=== PATIENT | male | born 2000 | race Caucasian/White ===

== ENCOUNTER 2023-02-13 09:45 | Emergency (ER) | payer SELFPAY ==
--- OUTSIDE RECORDS SUMMARY | 2023-02-13 09:48 | XMS REPORT | Continuity of Care Document ---
:2000 Author Organization [facility] t Address [address] [place] [id number] Care Team Providers Name Role Phone PCP, PATIENT DOES NOT HAVE A Primary Care Physician Unavaila YOLI Tillman Attending Clinician Unavailable Yoli Crawley DO Attending Clinician Doctor Unassigned, [place] Attending Clinician Unavailable Allison Walker NP Attending Clinician ALLISON WALKER Attending Clinician Unavailable Problems Condition Condition Condition Status Onset Resolution Last Treating Co mments Source Name Details Category Date Date Treatment Clinician Date No known No known Disease Unive rs active active ity of problems problems [facility] Allergies, Adverse Reactions, Alerts Allergy Allergy Status Severity Reaction(s) Onset Inactive Treating Comm ents Source Name Type Date Date Clinician NO KNOWN Drug Active Univers ALLERGIE Class ity of S [facility] Social History Social Habit Start Date Stop Date Quantity Comments Source Exposure to Not sure [facility] SARS-CoV-2 (event) Medica l Branch Sex Assigned At [birth year] [facility] 00:00:00 00:00:00 [facility] Smoking Status Start Date Stop Date Source Unknown if ever smoked [facility] Medications Ordered Filled Start Stop Current Ordering Indication Dosage Frequency Signature Comments Components Source Medication Medication Date Date Medication? Clinician (SIG) Name Name dexamethaso 2021-0 2021- No 10mg 10 mg, Uni vers ne 09-27 Oral, ity of ([place] 17:15: 16:10 [place], [place] 00 :00 dose, On Medic al injection Person [facility] 10 mg 09/27/21 at 1115, STAT No known No Univers medications 09-27 ity of 09:22: [place] 06 [facility] Branch No known 2019- No Univers medications 10-15 ity of 22:05: [place] 56 [facility] oseltamivir 2020- No [id number] 75mg Take 1 Univers 75 mg 10-1518 capsule by ity of capsule 00:00: 04:59 mouth [place] 00 :00 daily for Medical 5 days. Branch Vital Signs Vital Name Observation Time Observation Value Comments Source Systolic blood 2021-09-27 15:14:27 138 mm[Hg] Univer sity of [facility] Diastolic blood 2021-09-27 15:14:27 77 mm[Hg] Unive rsity of [facility] Heart rate 2021-09-27 15:14:27 60 /min Universi ty [facility] Body temperature 2021-09-27 15:14:27 36.5 [facility] [place] [facility] Respiratory rate 2021-09-27 15:14:27 16 /min [facility] Body height 2021-09-27 15:12:00 167.6 cm Universi ty [facility] Body weight 2021-09-27 15:12:00 63.504 kg Universi ty [facility] BMI 2021-09-27 15:12:00 22.60 kg/m2 Universi ty [facility] Oxygen saturation in 2021-09-27 15:12:00 100 /min University of Arterial blood by [facility] Pulse oximetry Branch Systolic blood 2019-10-17 03:15:00 140 mm[Hg] Univer sity of [facility] Diastolic blood 2019-10-17 03:15:00 95 mm[Hg] Unive rsity of [facility] Heart rate 2019-10-17 03:15:00 95 /min Universi ty of [facility] Respiratory rate 2019-10-17 03:15:00 17 /min [facility] Oxygen saturation in 2019-10-17 03:15:00 100 /min University of Arterial blood by [facility] Pulse oximetry Branch Body height 2019-10-16 23:49:00 172.7 cm [facility] Body weight 2019-10-16 23:49:00 65.772 kg [facility] BMI 2019-10-16 23:49:00 22.05 kg/m2 [facility] Body temperature 2019-10-16 23:49:00 37.28 [facility] Procedures Procedure Date / Time Performed Performing Clinician Sourc e NOTICE OF PRIVACY 2021-09-27 15:05:01 Doctor Unassigned, No [facility] [place] CONSENT/REFUSAL FOR 2021-09-27 15:04:36 [facility], [facility] Branch TREATMENT ADC,CLC OR LCC ONLY - 2019-10-17 02:14:00 [facility] [place] [facility] INFLUENZA A & B DIRECT Medical B ranch ANTIGEN ASSIGNMENT OF BENEFITS 2019-10-16 23:43:08 Doctor Unassigned, No [facility] [place] NOTICE OF PRIVACY 2019-10-16 23:39:57 Doctor Unassigned, No [facility] [place] CONSENT/REFUSAL FOR 2019-10-16 23:36:54 Doctor Unass[facility], [facility] [place] TREATMENT Encounters Start End Encounter Admission Attending Care Care Encounter Source Date/Time Date/Time Type Type Clinicians Facility Department ID 2021-09-27 2021-09-27 [facility] [id number] Univers 09:16:00 10:20:00 YOLI murillo [facility] 2021-09-27 2021-09-27 [facility] [id number] Univers 09:16:00 10:20:00 Yoli KAY [id number] ity of [place] [id number] [facility] [id number] [facility] 084 Branch 2021-09-27 2021-09-27 Orders Doctor SHARMA [id number] Univers 00:00:00 00:00:00 Only Unassigned, GUS [id number] ity of [place] [facility] [id number] [facility] 009 Branch 2019-10-16 2019-10-16 Emergency [facility] [id number] Univers 20:06:59 22:20:00 Allison Kay [id number] [place] [id number] [facility] [id number] [place] [id number] Branch 2019-10-16 2019-10-16 Emergency X [facility] ERT [id number] Univers 20:06:59 20:06:59 [facility] Results Test Description Test Time Test Comments Results Result Comments Source ADC,CLC OR LCC ONLY - INFLUENZA A & B DIRECT ANTIGEN 2019-10 02:54:00 Test Item Value Reference Range Interpretation Comme nts Influenza A (test code = 61142-3) Negative Negative Influenza B (test code = 38806-4) Negative Negative Lab Interpretation (test code = 92576-7) Normal [facility]
[2023-02-13] MEDS ORDERED: TDAP (DIPHTH,PERTUSS(ACELL),TET VAC) 0.5 ML VIAL IMVAC ONE (10:04)
[2023-02-13] MEDS ORDERED: THIAMINE 200 MG/2 ML INJ ONE (10:05)
[2023-02-13] MEDS ORDERED: MULTIVITAMINS 10 ML VIAL (INJ) IV ONE (10:06)
[2023-02-13] MEDS ORDERED: FOLIC ACID 5 MG/ML VIAL ONE (10:06)
[2023-02-13] MEDS ORDERED: NA CHLORIDE 0.9% 1,000 ML ONE (10:07)
[2023-02-13] MEDS ORDERED: LIDOCAINE 1% 20 ML MDV ONE (10:55)
--- NOTE | 2023-02-13 11:29 | RAD REPORT ---
EXAM DESCRIPTION: RAD - Hand Right 3 View - 02/13/2023 10:26 am CLINICAL HISTORY: PAIN COMPARISON: No comparisons FINDINGS: No fracture or dislocation seen. No radiopaque foreign body.
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
[2023-02-13 12:27] VITALS: TEMP 97.9; O2SAT 99
[2023-02-13 12:28] VITALS: BP 128/72
== END 2023-02-13 12:09 | disposition home or self-care (01) ==
LOC: ER 09:45
PROC: 0HQFXZZ Repair Right Hand Skin, External Approach (ICD-10-PCS; principal; 2023-02-13)
DX: S61.411A Laceration without foreign body of right hand, initial encounter (principal); S60.221A Contusion of right hand, initial encounter
CPT/HCPCS: 96372; 96374; 99285; J2001; J3411; J7030

== ENCOUNTER 2023-07-08 10:04 | Emergency (ER) | payer SELFPAY ==
--- OUTSIDE RECORDS SUMMARY | 2023-07-08 10:06 | XMS REPORT | Continuity of Care Document ---
:2000 Author Organization [facility] t Address [address] [place] [id number] Care Team Providers Name Role Phone PCP, PATIENT DOES NOT HAVE A Primary Care Physician Unavaila YOLI Tillman Attending Clinician Unavailable Yoli Crawley DO Attending Clinician Doctor Unassigned, [place] Attending Clinician Unavailable Allison Walker NP Attending Clinician ALLISON WALKER Attending Clinician Unavailable Problems Condition Condition Condition Status Onset Resolution Last Treating Co mments Source Name Details Category Date Date Treatment Clinician Date No known No known Disease Unive rs active active ity of problems problems [facility] Allergies, Adverse Reactions, Alerts Allergy Allergy Status Severity Reaction(s) Onset Inactive Treating Comm ents Source Name Type Date Date Clinician NO KNOWN Drug Active Univers ALLERGIE Class ity of S [facility] Social History Social Habit Start Date Stop Date Quantity Comments Source Exposure to Not sure [facility] SARS-CoV-2 (event) Medica l Branch Sex Assigned At [birth year] [facility] 00:00:00 00:00:00 [facility] Smoking Status Start Date Stop Date Source Unknown if ever smoked [facility] Medications Ordered Filled Start Stop Current Ordering Indication Dosage Frequency Signature Comments Components Source Medication Medication Date Date Medication? Clinician (SIG) Name Name dexamethaso 2021-0 2021- No 10mg 10 mg, Uni vers ne 09-27 Oral, ity of ([place] 17:15: 16:10 [place]CE, [place] 00 :00 dose, On Medic al injection [facility] Branch 10 mg 09/27/21 at 1115, STAT No known No Univers medications 09-27 ity of 09:22: [place] 06 [facility] Branch No known 2019- No Univers medications 10-15 ity of 22:05: [place] 56 [facility] oseltamivir 2020- No [id number] 75mg Take 1 Univers 75 mg 10-1518 capsule by ity of capsule 00:00: 04:59 mouth [place] 00 :00 daily for Medical 5 days. Branch Vital Signs Vital Name Observation Time Observation Value Comments Source Systolic blood 2021-09-27 15:14:27 138 mm[Hg] Univer sity of [facility] Diastolic blood 2021-09-27 15:14:27 77 mm[Hg] Unive rsity of [facility] Heart rate 2021-09-27 15:14:27 60 /min Universi ty [facility] Body temperature 2021-09-27 15:14:27 36.5 [place]da [facility] Res[facility] rate 2021-09-27 15:14:27 16 /min [facility] Body height 2021-09-27 15:12:00 167.6 cm Universi ty [facility] Body weight 2021-09-27 15:12:00 63.504 kg Universi ty [facility] BMI 2021-09-27 15:12:00 22.60 kg/m2 Universi ty [facility] Oxygen saturation in 2021-09-27 15:12:00 100 /min University of Arterial blood by [facility] Pulse oximetry Branch Systolic blood 2019-10-17 03:15:00 140 mm[Hg] Univer sity of [facility] Diastolic blood 2019-10-17 03:15:00 95 mm[Hg] Unive rsity of [facility] Heart rate 2019-10-17 03:15:00 95 /min Universi ty of [facility] Respiratory rate 2019-10-17 03:15:00 17 /min [facility] Oxygen saturation in 2019-10-17 03:15:00 100 /min University of Arterial blood by [facility] Pulse oximetry Branch Body height 2019-10-16 23:49:00 172.7 cm [facility] Body weight 2019-10-16 23:49:00 65.772 kg [facility] BMI 2019-10-16 23:49:00 22.05 kg/m2 [facility] Body temperature 2019-10-16 23:49:00 37.28 Nereyda [facility] Procedures Procedure Date / Time Performed Performing Clinician Sourc e NOTICE OF PRIVACY 2021-09-27 15:05:01 Doctor Unassigned, No [facility] [place] CONSENT/REFUSAL FOR 2021-09-27 15:04:36 [facility] Branch TREATMENT ADC,CLC OR LCC ONLY - 2019-10-17 02:14:00 [facility] INFLUENZA A & B DIRECT Medical B ranch ANTIGEN ASSIGNMENT OF BENEFITS 2019-10-16 23:43:08 Doctor Unassigned, No [facility] [place] NOTICE OF PRIVACY 2019-10-16 23:39:57 Doctor Unassigned, No [facility] [place] CONSENT/REFUSAL FOR 2019-10-16 23:36:54 [facility] [place] TREATMENT Encounters Start End Encounter Admission Attending Care Care Encounter Source Date/Time Date/Time Type Type Clinicians Facility Department ID 2021-09-27 2021-09-27 [facility] [id number] Univers 09:16:00 10:20:00 YOLI murillo [facility] 2021-09-27 2021-09-27 [facility] [id number] Univers 09:16:00 10:20:00 Yoli KAY [id number] ity of [place] [id number] [facility] [id number] [facility] 084 Branch 2021-09-27 2021-09-27 Orders Doctor SHARMA [id number] Univers 00:00:00 00:00:00 Only Unassigned, GUS [id number] ity of [place] [facility] [id number] Branden [id number] [facility] 009 Branch 2019-10-16 2019-10-16 Emergency [facility] [id number] Univers 20:06:59 22:20:00 Allison Kay [id number] [place] [id number] [facility] [id number] [place] [id number] Branch 2019-10-16 2019-10-16 Emergency X [facility] ERT [id number] Univers 20:06:59 20:06:59 [facility] Results Test Description Test Time Test Comments Results Result Comments Source ADC,CLC OR LCC ONLY - INFLUENZA A & B DIRECT ANTIGEN 2019-10 02:54:00 Test Item Value Reference Range Interpretation Comme nts Influenza A (test code = 76207-4) Negative Negative Influenza B (test code = 93692-9) Negative Negative Lab Interpretation (test code = 84608-1) Normal [facility]
[2023-07-08 10:50] LABS: SARS-CoV-2 Antigen Rapid Res Negative (Negative)
--- NOTE | 2023-07-08 11:07 | EDPHYS ---
Physician Documentation [facility] Name: Jordin Groves Age: 22 yrs Sex: Male : 2000 Arrival Date: 07/08/2023 Time: 10:04 Bed 10 Private MD: ED Physician Cholo Nye HPI: 07/08 10:08 This 22 yrs old Male presents to ER via Unassigned with complaints of Sore Throat. jh7 10:08 The patient presents with sore throat. The patient describes throat pain as burning, jh7 raw. Onset: The symptoms/episode began/occurred 3 day(s) ago. Associated signs and symptoms: Pertinent positives: cough, rhinorrhea, Sore throat fever (RESOLVED), Pertinent negatives chest pain, diarrhea, vomiting. Historical: - Allergies: 10:15 No Known Allergies; hb - PMHx: 10:15 ADD/ADHD; Depression; hb - Immunization history:: Adult Immunizations up to date. - Social history:: Smoking status: Patient reports the use of cigarette tobacco products, denies chronic smoking, but will smoke occasionally. ROS: 10:08 Constitutional: Negative for fever, chills, and weight loss, Eyes: Negative for injury, jh7 pain, redness, and discharge, Neck: Negative for injury, pain, and swelling, Cardiovascular: Negative for chest pain, palpitations, and edema, Abdomen/GI: Negative for abdominal pain, nausea, vomiting, diarrhea, and constipation, MS/Extremity: Negative for injury and deformity, Skin: Negative for injury, rash, and discoloration, Neuro: Negative for headache, weakness, numbness, tingling, and seizure, 10:08 ENT: Positive for sore throat, 10:08 Respiratory: Positive for cough, Negative for shortness of breath, 10:08 All other systems are negative, Exam: 10:08 Constitutional: This is a well developed, well nourished patient who is awake, alert, jh7 and in no acute distress. Head/Face: Normocephalic, atraumatic. Eyes: Pupils equal round and reactive to light, extra-ocular motions intact. Lids and lashes normal. Conjunctiva and sclera are non-icteric and not injected. Cornea within normal limits. Periorbital areas with no swelling, redness, or edema. Neck: Trachea midline, no thyromegaly or masses palpated, and no cervical lymphadenopathy. Supple, full range of motion without nuchal rigidity, or vertebral point tenderness. No Meningismus. Cardiovascular: Regular rate and rhythm with a normal S1 and S2. No gallops, murmurs, or rubs. Normal PMI, no JVD. No pulse deficits. Respiratory: Lungs have equal breath sounds bilaterally, clear to auscultation and percussion. No rales, rhonchi or wheezes noted. No increased work of breathing, no retractions or nasal flaring. Abdomen/GI: Soft, non-tender, with normal bowel sounds. No distension or tympany. No guarding or rebound. No evidence of tenderness throughout. Back: No spinal tenderness. No costovertebral tenderness. Full range of motion. Skin: Warm, dry with normal turgor. Normal color with no rashes, no lesions, and no evidence of cellulitis. MS/ Extremity: Pulses equal, no cyanosis. Neurovascular intact. Full, normal range of motion. Neuro: Awake and alert, GCS 15, oriented to person, place, time, and situation. Motor strength 5/5 in all extremities. Sensory grossly intact. Normal gait. 10:08 ENT: TM's: are normal, Posterior pharynx: erythema, that is mild, pooling of secretions, that are mild, Vital Signs: 10:14 BP 124 / 76; Pulse 91; Resp 16; Temp 98.5(TE); Pulse Ox 100% on R/A; Weight 68.04 kg; hb Height 5 ft. 6 in. ; Pain 7/10; 10:14 Body Mass Index 24.21 (68.04 kg, 167.64 cm) hb 10:14 Pain Scale: Adult hb MDM: 10:08 Patient medically screened. [facility] 11:08 Differential diagnosis: Allergic rhinitis, bronchitis, group A strep tonsillitis, [facility] influenza, pharyngitis, upper respiratory infection, viral syndrome. Data reviewed: vital signs, nurses notes. Counseling: I had a detailed discussion with the patient and/or guardian regarding the historical points, exam findings, and any diagnostic results supporting the discharge/admit diagnosis, to return to the emergency department if symptoms worsen or persist or if there are any questions or concerns that arise at home. Special discussion: I discussed with the patient/guardian that the patient's current presentation does not indicate dosing of antibiotics. They should follow-up with their primary care provider and return if the symptoms persist or progress. 07/08 10:12 Order name: Strep; Complete Time: 11: [facility] 07/08 10:12 Order name: Flu; Complete Time: 11: [facility] 07/08 10:12 Order name: SARS RAPID; Complete Time: 11: [facility] 07/08 10:52 Order name: Throat Culture EDMS Administered Medications: No medications were administered Disposition Summary: 07/08/23 11:06 Discharge Ordered Notes: Location: Home [facility] Problem: new [facility] Symptoms: are unchanged [facility] Condition: Stable [facility] Diagnosis - Acute upper respiratory infection, unspecified [facility] Followup: [facility] - With: Private Physician - When: 2 - 3 days - Reason: Recheck today's complaints Discharge Instructions: - Discharge Summary Sheet [facility] - Upper Respiratory Infection, Adult [facility] - Viral Respiratory Infection [facility] Forms: - Medication Reconciliation Form [facility] - Thank You Letter [facility] - Patient Portal Instructions [facility] - Leadership Thank You Letter [facility] Prescriptions: - Bromfed DM 2-30-10 mg/5 mL Oral syrup - administer 10 milliliter ORAL route every 4-6 hours As needed; 240 milliliter; [facility] Refills: 0, Product Selection Permitted Signatures: Dispatcher [employer] Sindhu Mon[place], GOVIND RN Veronica Portillo, PHOTO BOOTH OPERATOR PHOTO BOOTH OPERATOR [facility]
--- NOTE | 2023-07-08 11:07 | ER ---
Nurse's Notes [facility] [place] Name: Jordin Groves Age: 22 yrs Sex: Male : 2000 Arrival Date: 07/08/2023 Time: 10:04 Bed 10 Private MD: Diagnosis: Acute upper respiratory infection, unspecified Presentation: 07/08 10:14 Chief complaint: Fever, sore throat, headache, body aches, and cough x 3-4 days. hb Coronavirus screen: Client presents with at least one sign or symptom that may indicate coronavirus-19. Provider contacted for isolation considerations. Ebola Screen: No symptoms or risks identified at this time. Initial Sepsis Screen: Does the patient meet any 2 criteria? No. Patient's initial sepsis screen is negative. Does the patient have a suspected source of infection? No. Patient's initial sepsis screen is negative. Risk Assessment: Do you want to hurt yourself or someone else? Patient reports no desire to harm self or others. Onset of symptoms was July 05, 2023. 10:14 Method Of Arrival: Ambulatory hb 10:14 Acuity: SOTERO 4 hb Historical: - Allergies: 10:15 No Known Allergies; hb - PMHx: 10:15 ADD/ADHD; Depression; hb - Immunization history:: Adult Immunizations up to date. - Social history:: Smoking status: Patient reports the use of cigarette tobacco products, denies chronic smoking, but will smoke occasionally. Vital Signs: 10:14 BP 124 / 76; Pulse 91; Resp 16; Temp 98.5(TE); Pulse Ox 100% on R/A; Weight 68.04 kg; hb Height 5 ft. 6 in. ; Pain 7/10; 10:14 Body Mass Index 24.21 (68.04 kg, 167.64 cm) hb 10:14 Pain Scale: Adult hb ED Course: 10:06 Patient arrived in ED. rg4 10:08 [facility] Peck [facility] jh7 10:08 Cholo Nye MD is Attending Physician. jh7 10:15 Triage completed. hb 10:15 Arm band placed on. hb 11:43 Siomara Crawley, RN is Primary Nurse. iw Administered Medications: No medications were administered Outcome: 11:06 Discharge ordered by . [facility] 11:43 Patient left the ED. iw Signatures: Siomara Crawley, RN RN Sindhu Skinner, RN RN Claudette Scott rg4 Veronica Peck, NICKI BIBLICAL STUDIES PROFESSOR jh7
[2023-07-08 11:55] VITALS: BP 124/76; TEMP 98.5; O2SAT 100
== END 2023-07-08 11:43 | disposition home or self-care (01) ==
LOC: ER 10:04
DX: J06.9 Acute upper respiratory infection, unspecified (principal); Z11.52 Encounter for screening for COVID-19
CPT/HCPCS: 36415; 87070; 87081; 87804; 87811; 99281